=== PATIENT | male | born 1940 | race Caucasian/White ===

== ENCOUNTER 2023-11-05 08:53 | Emergency (ER) | payer OTHER ==
[~2023-11-05] VITALS: Ht 177.8 cm; Wt 88.5 kg
[2023-11-05 08:54] VITALS: BP 182/90; PULSE 90; RESP 16; TEMP 97.8; O2SAT 98
[2023-11-05] MEDS ORDERED: PHENYLEPHRINE 1% 15 ML BTL NS ONE (09:09)
[2023-11-05] MEDS: PHENYLEPHRINE 1% 15 ML BTL NS ONE (09:18)
[2023-11-05] MEDS: TRANEXAMIC ACID 1,000 MG/10 ML VIAL MC ONE (09:51)
[2023-11-05] MEDS ORDERED: ACET-8905 PO (09:55)
[2023-11-05 10:20] VITALS: BP 148/72; PULSE 72; RESP 16; TEMP 97.8; O2SAT 98
== END 2023-11-05 10:21 | disposition home or self-care (01) ==
LOC: MED 08:53
DX: R04.0 Epistaxis (principal); Z79.899 Other long term (current) drug therapy
CPT/HCPCS: 30901; 99284; J3490